=== PATIENT | female | born 1965 | race Caucasian/White ===

== ENCOUNTER 2016-08-07 12:57 | Emergency (ER) | payer OTHER ==
--- NOTE | 2016-08-07 14:07 | DIAGNOSTIC IMAGING REPORT ---
PROCEDURE: XR CHEST 2 VIEW INDICATION: COPD TECHNIQUE: PA and lateral views. COMPARISON: None. FINDINGS: Lungs are clear. Heart and mediastinum are normal. Thorax is normal. IMPRESSION: 1. Negative chest.
--- NOTE | 2016-08-07 15:00 | ED CLINICAL REPORT ---
Clinical Report - Physicians/Mid Levels [facility] [address] [place] [address] 08/07/2016 13:00 Patient: NELL GARCIA Time Seen: 1320; initial patient contact. Arrived- By private vehicle. Historian- patient. HISTORY OF PRESENT ILLNESS Chief Complaint: WHEEZING and hx COPD. This started yesterday and is still present and worsening. It was abrupt in onset and has been constant but is not gone now. The dyspnea is described as severe. She has had dyspnea at rest. The patient has had a cough. (wheezing). See nurses notes for current asthma threapy. Asthma triggers: (unknown). Similar symptoms previously: Several times. Recent medical care: Not recently seen/assessed. REVIEW OF SYSTEMS No fever, chills, palpitations, nausea or skin rash. No vomiting. All systems otherwise negative, except as recorded above. PAST HISTORY See nurses notes. Medications: Hydrochlorothiazide Oral 25 mg, daily. Methocarbamol Oral 500 mg, 3x a day. Lovastatin Oral 20mg, daily. ASA Oral 81mg , daily. Carbidopa-Levodopa Oral 25/100 mg, , 1.5 pills at night. Laxative Pills Oral. Glipizide Oral 2.5mg, 2x a day. Benadryl Allergy Oral, as needed. Gabapentin Oral 300 mg, 2x a day. Allergies: PCN. SOCIAL HISTORY Smoker- current status unknown. No alcohol use or drug use. No recent travel. Is a local resident. ADDITIONAL NOTES The nursing notes have been reviewed. PHYSICAL EXAM Vital Signs: 08/07/2016 13:21 BP: 171/83. HR: 104. RR: 20. O2 saturation: 92%. Temp: 97.5 F. Oxygen saturation normal. Appearance: Alert. No acute distress. Eyes: Pupils equal, round and reactive to light. Eyes normal inspection. ENT: Ears normal. Nose normal. Pharynx normal. Uvula midline. Neck: Normal inspection. Neck supple. No meningeal signs. CVS: Normal heart rate and rhythm. Heart sounds normal. Pulses normal. Respiratory: Mild respiratory distress with accessory muscle use. Expiratory mild bilateral wheezes present. Mild rhonchi present bilaterally. No stridor or rales. Abdomen: Soft and nontender. No organomegaly. Skin: Skin warm and dry. Normal skin color. No rash. Normal skin turgor. Extremities: Extremities exhibit normal ROM. No lower extremity edema. LABS, X-RAYS, AND EKG EKG: No acute ischemia. Tachycardia (104). Sinus tachycardia. Normal P waves. Normal KYLE. Normal QRS complex. Normal axis. Normal ST and T waves, QT and QTc. The study has been interpreted contemporaneously. The study has been independently viewed by me. The EKG appears to be a good tracing. Chest X-ray: (PROCEDURE: XR CHEST 2 VIEW INDICATION: COPD TECHNIQUE: PA and lateral views. COMPARISON: None. FINDINGS: Lungs are clear. Heart and mediastinum are normal. Thorax is normal. IMPRESSION: 1. Negative chest.). The X-rays were independently viewed by me and interpreted by the radiologist. The X-rays were discussed with the radiologist (via pacs). Laboratory Tests: CBC w Diff: (ALVAREZ: 08/07/2016 14:06) ( MsgRcvd 08/07/2016 14:25) Final results Test Result Flag Units (Reference) WHITE BLOOD COUNT 11.3 K/uL (4.5-11.5) RED BLOOD COUNT 4.31 M/uL (4.00-5.20) HEMOGLOBIN 14.8 gm/dL (12.0-16.0) HEMATOCRIT 44.5 % (36.0-46.0) MEAN CELL VOLUME 103 H fL (80-100) MEAN CORPUSCULAR HGB 34 pg (26-34) MEAN CORPUSCULAR HGB CONC 33 g/dL (31-37) RED CELL DISTRIBUTION WIDTH 13.2 % (11.6-14.8) PLATELET COUNT 429 H K/uL (150-400) NEUTROPHIL % 64.2 % (50-75) LYMPH % 25.2 % (25-40) MONO % 6.7 % (3-14) EOSINOPHIL % 3.6 % (0-4) BASOPHIL % 0.3 % (0-2) . PROGRESS AND PROCEDURES Course of Care: patient with history of smoking and COPD presenting for evaluation of exacerbation. Patient appears nontoxic. Breathing treatment has been ordered. Patient does not improved as would be expected from a COPD exacerbation, will consider other causes for her shortness of breath. Chest x-ray has been ordered for potential pneumonia. Patient is agreeable to the treatment plan. The patient's workup was unremarkable for the findings above. No acute abnormalities noted. EKG was ordered per triage protocol. No acute findings noted there. Patient was significantly improved symptoms while here in the emergency department. Had a discussion with the patient in regards to her workup in the emergency department including diagnosis, home care, follow-up, and return precautions. All questions have been answered. The patient expressed understanding of these instructions and was agreeable to them. Smoking cessation discussed. CLINICAL IMPRESSION 08/07/2016 14:11 HR: 100. RR: 22. O2 saturation: 91%. 08/07/2016 13:21 BP: 171/83. HR: 104. RR: 20. O2 saturation: 92%. Temp: 97.5 F. Oxygen saturation: borderline. Acute exacerbation of COPD (acute). INSTRUCTIONS Warnings: GENERAL WARNINGS: Return or contact your physician immediately if your condition worsens or changes unexpectedly, if not improving as expected, or if other problems arise. Specifically return if pain, vomiting, bleeding, breathing difficulty or fever. Your Current Medications: CONTINUE TAKING THE FOLLOWING MEDICATIONS: ASA Oral : 81mg daily. Benadryl Allergy Oral : prn. Carbidopa-Levodopa Oral : 25/100 mg, 1.5 pills at night. Gabapentin Oral : 300 mg 2x a day. Glipizide Oral : 2.5mg 2x a day. Hydrochlorothiazide Oral : 25 mg daily. Laxative Pills Oral. Lovastatin Oral : 20mg daily. Methocarbamol Oral : 500 mg 3x a day. Prescription Medications: Albuterol HFA oral inhaler: inhale 1-2 puffs every 4 hours as needed for wheezing, difficulty breathing or shortness of breath. Dispense one (1) unit. No refill. Albuterol 0.083% Inhalation Solution: inhale 1 unit dose (3 mL) via nebulizer every 4 hours as needed for wheezing, difficulty breathing or shortness of breath. Dispense fifty (50) units. No refills. Prednisone. No refills. (60 mg PO once a day for 5 days. Disp suff quant.) Zithromax Z-Alec: Take according to package instructions. No refills. Substitution is permissible. nebulizer machine. for use with nebulizer solution. disp 1 machine. no refills. Follow-up: Return to the emergency department as needed. Follow up with your doctor in three days. Reason for referral: recheck today's concerns. Summary of care provided to patient via paper. Screening today revealed the patient's blood pressure to be in the normal range. The patient should follow up with a primary care provider for blood pressure management. Understanding of the discharge instructions verbalized by patient and family. (Electronically signed by Richie Rasheed Dr. 08/10/2016 5:45)
--- NOTE | 2016-08-07 15:00 | ED ORDER SUMMARY ---
..... Patient: NELL GARCIA OrderSheet [facility] VisitID: [id number] [place] [address] 50y, F Registration Date/Time: 08/07/2016 ORDER SHEET Weight: 77.1 kg (stated) Allergies: PCN GENERAL ORDERS: Analytical Chemist (Continuous) (13:20 08/07/2016 JBoardley R.N. per protocol) (13:21 JBoardley R.N.) Pulse oximeter (13:20 08/07/2016 JBoardley R.N. per protocol) (13:21 JBoardley R.N.) EKG - ER Stat (13:20 08/07/2016 JBoardley R.N. per protocol) (13:21 JBoardley R.N.) Chest 2V Urgent (13:35 08/07/2016 Leo Francisco) (Ack 13:46 LNations ER Tech1) (14:10 JBoardley R.N.) CBC w Diff Urgent (13:36 08/07/2016 Leo Francisco) (Ack 13:46 LNations ER Tech1) (14:10 JBoardley R.N.) BMP Urgent (13:36 08/07/2016 Leo Francisco) (Ack 13:46 LNations ER Tech1) (14:10 JBoardley R.N.) MEDICATION ORDERS: Albuterol Neb w Atrovent 1 unit dose (NOW) (13:29 08/07/2016 JBoardlesharonda R.N. per protocol) (13:35 JBoardley R.N.) DuoNeb Neb Tx 1 unit dose (NOW) (13:36 08/07/2016 Leo Francisco) (Ack 13:44 NANETTEoarguillermina R.N.) (13:52 KEpting) Albuterol Neb Tx 2.5 mg (NOW) (14:19 08/07/2016 Leo Francisco) (14:25 KEpting) Azithromycin PO 500 mg (NOW) (14:57 08/07/2016 Leo Francisco) (Ack 15:00 JBoardley R.N.) (15:03 JBoardley R.N.) IV FLUIDS: Solu-MEDROL IV 125 mg (NOW) (13:36 08/07/2016 Leo Francisco) (Ack 13:44 JBoardley R.N.) (14:11 JBoardley R.N.) IV Saline Lock (13:36 08/07/2016 Leo Francisco) (Ack 13:44 JBoardley R.N.) (14:11 JBoardley R.N.) ORDER SHEET NOTES: [Electronically signed by Nii Rendon R.N. (15:14 08/07/2016)] [Electronically signed by Richie Rasheed Dr. (05:45 08/10/2016)] [Electronically locked/signed by Nii Rendon R.N. (15:14 08/07/2016)]
--- NOTE | 2016-08-07 15:00 | ED NURSING NOTES ---
Clinical Report - Nurses [facility] [address] [place] [address] 08/07/2016 13:00 Patient: NELL GARCIA TRIAGE Triage time 13:16 Aug 07 2016. Acuity: LEVEL 3. Chief Complaint: SHORTNESS OF BREATH. 13:16 08/07/16. 13:16 08/07/16. Alert. --13:22 Nii Rendon R.N. 13:21 08/07/16. BP: 171/83. HR: 104. RR: 20. O2 saturation: 92% on room air. Temp: 97.5 F (oral). --13:22 Nii Rendon R.N. Weight: 77.1 kg stated. Height/Length: 63 inches Per Patient. BMI: 30.1. --13:16 Nii Rendon R.N. Medications Gabapentin Oral 300 mg, 2x a day. --13:24 Nii Rendon R.N. Benadryl Allergy Oral, as needed. --13:24 Nii Rendon R.N. Glipizide Oral 2.5mg, 2x a day. --13:24 Nii Rendon R.N. Laxative Pills Oral. --13:25 Nii Rendon R.N. Carbidopa-Levodopa Oral 25/100 mg, , 1.5 pills at night. --13:25 Nii Rendon R.N. ASA Oral 81mg , daily. --13:26 Nii Rendon R.N. Lovastatin Oral 20mg, daily. --13:26 Nii Rendon R.N. Methocarbamol Oral 500 mg, 3x a day. --13:27 Nii Rendon R.N. Hydrochlorothiazide Oral 25 mg, daily. --13:28 Nii Rendon R.N. Medication/allergy information source: the patient. --13:22 Nii Rendon R.N. Allergies PCN. --13:18 Nii Rendon R.N. History Arrived by private vehicle. [facility] 13:16 08/07/16. This started last night. Treatment DIRECTOR MISSION: None. PAST MEDICAL HX: Immunizations: up-to-date. The patient is post-menopausal. SOCIAL HX: Current every day light tobacco smoker (cigarette)- less than 1/2 a pack per day. No alcohol use or drug use. No infectious disease exposure. ABUSE ASSESSMENT: No report of abuse. FALL RISK ASSESSMENT: Fall risk assessment completed. No fall risk identified. NUTRITIONAL RISK ASSESSMENT: The nutritional risk assessment revealed no deficiencies. FUNCTIONAL ASSESSMENT: Functional assessment: no impairments noted. LEARNING NEEDS ASSESSMENT: The learning needs assessment revealed no barriers. SKIN INTEGRITY ASSESSMENT: Skin integrity risk assessment completed. No skin integrity risk identified. --13:22 Nii Rendon R.N. PROBLEMS: Diabetes Mellitus. Hypertension. COPD - Chronic Obstructive Pulmonary Disease. --13:18 Nii Rendon R.N. Back Pain. Restless Legs Syndrome. --13:29 Nii Rendon R.N. ADDITIONAL SURGERIES: Appendectomy. --13:19 Nii Rendon R.N. Back Surgery. --13:29 Nii Rendon R.N. Assessment 13:08/07/16. --13:22 Nii Rendon R.N. Interventions 13:08/07/16. 13:08/07/16. ID and allergy band on patient. To treatment room. --13:22 Nii Rendon R.N. PHYSICAL ASSESSMENT 13:08/07/16. Ambulatory to room. GENERAL / NEURO / PSYCH: Alert. Oriented X 4. RESPIRATORY: Mild respiratory distress. The patient can speak a few words at a time. Cough productive of sputum. CVS: Capillary refill less than 2 seconds. SKIN: Skin is warm. --13:19 Nii Rendon R.N. NURSING PROGRESS NOTES 13:08/07/16. The plan of care for this patient has been created. Monitoring of patient in place. Patient gowned. Head of bed elevated. Reassurance given. Call light placed in reach. Side rails up x 2. Bed placed in lowest position. Brakes of bed on. Patient ready for evaluation- chart flagged and notification provided. --13:19 Nii Rendon R.N. 13:21 08/07/16. EKG time: (1322 PM). EKG was ordered, performed by a tech and shown to the ED physician. --13:21 Nii Rendon R.N. 13:35 08/07/2016 ALBUTEROL NEB W ATROVENT Neb TX 1 unit dose given. Given by the nurse. Allergies verified and confirmed 5 rights. --13:35 Nii Rendon R.N. 13:52 08/07/2016 Duoneb (Ipratropium-Albuterol) Neb TX 1 unit dose given. --13:52 Heidy Richardson 14:01 08/07/2016 Site #1 started via IV in the right antecubital space with an 20g angiocath, with aseptic technique and good blood return; one attempt. Blood drawn: rainbow set. Labeled in the presence of the patient and sent to the lab. Saline lock flushed with 10 mL saline. --14:11 Nii Rendon R.N. 14:06 08/07/2016 SOLU-MEDROL (MethylPREDNISolone Sodium Succ) IVP 125 mg given over 2 minute(s) via site #1. Allergies verified and confirmed 5 rights. IV patency established. IV site checked: no pain, redness, or swelling. IV flushed thoroughly pre- and post-medication administration. IVP given by RN. --14:11 Nii Rendon R.N. 14:12 08/07/16. Cardiac rhythm: sinus tachycardia. --14:12 Nii Rendon R.N. 14:11 08/07/16. HR: 100. RR: 22. O2 saturation: 91% on room air. --14:12 Nii Rendon R.N. 14:12 08/07/16. Reassessment after medication administered. Overall patient status is improved- she states feels better. --14:12 Nii Rendon R.N. 14:25 08/07/2016 Albuterol Neb TX 1 unit dose given. --14:25 Heidy Richardson 14:47 08/07/16. Reassessment after medication administered. She is calm and resting quietly. Overall patient status is improved- she states feels better. --14:47 Nii Rendon R.N. 15:08/07/2016 Azithromycin PO 500 mg given. Allergies verified and confirmed 5 rights. --15:03 Nii Rendon R.N. 15:08/07/2016 Site #1 removed upon discharge. Catheter intact. --15:05 Nii Rendon R.N. DISPOSITION / DISCHARGE 15:08/07/16. Cardiac rhythm: normal sinus rhythm. Condition at departure: improved. The goals identified in the patient's plan of care were met. No learning barriers present. Discharge instructions provided and reviewed with the patient. Reviewed warnings. Reviewed medication(s). Treatments reviewed. Patient verbalized understanding. Written instructions provided in Swedish. The patient was discharged by the physician. She was discharged home and accompanied by family. She left the Emergency Department ambulatory and via private vehicle. Family member driving. FALL RISK ASSESSMENT: Fall risk assessment completed. No fall risk identified. --15:09 Nii Rendon R.N. 15:08/07/16. BP: 134/72. HR: 88. RR: 20. O2 saturation: 93% on room air. Temp: 98.2 F (oral). Pain level now: 02/14. --15:09 Nii Rendon R.N. 15:08/07/16. Departure time: 15:Aug 07 2016. --15:09 Nii Rendon R.N. Locked/Released at 08/07/2016 15:14 by Nii Rendon R.N.
--- NOTE | 2016-08-07 15:00 | ED ORDER SUMMARY ---
..... Patient: NELL GARCIA OrderSheet [facility] VisitID: [id number] [place] [address] 50y, F Registration Date/Time: 08/07/2016 ORDER SHEET Weight: 77.1 kg (stated) Allergies: PCN GENERAL ORDERS: Perfect Binder Feeder Offbearer (Continuous) (13:20 08/07/2016 JBoardley R.N. per protocol) (13:21 JBoardley R.N.) Pulse oximeter (13:20 08/07/2016 JBoardley R.N. per protocol) (13:21 JBoardley R.N.) EKG - ER Stat (13:20 08/07/2016 JBoardley R.N. per protocol) (13:21 JBoardley R.N.) Chest 2V Urgent (13:35 08/07/2016 Leo Francisco) (Ack 13:46 LNations ER Tech1) (14:10 JBoardley R.N.) CBC w Diff Urgent (13:36 08/07/2016 Leo Francisco) (Ack 13:46 LNations ER Tech1) (14:10 JBoardley R.N.) BMP Urgent (13:36 08/07/2016 Leo Francisco) (Ack 13:46 LNations ER Tech1) (14:10 JBoardley R.N.) MEDICATION ORDERS: Albuterol Neb w Atrovent 1 unit dose (NOW) (13:29 08/07/2016 JBoardlesharonda R.N. per protocol) (13:35 JBoardley R.N.) DuoNeb Neb Tx 1 unit dose (NOW) (13:36 08/07/2016 Leo Francisco) (Ack 13:44 NANETTEoarguillermina R.N.) (13:52 KEpting) Albuterol Neb Tx 2.5 mg (NOW) (14:19 08/07/2016 Leo Francisco) (14:25 KEpting) Azithromycin PO 500 mg (NOW) (14:57 08/07/2016 Leo Francisco) (Ack 15:00 JBoardley R.N.) (15:03 JBoardley R.N.) IV FLUIDS: Solu-MEDROL IV 125 mg (NOW) (13:36 08/07/2016 Leo Francisco) (Ack 13:44 JBoardley R.N.) (14:11 JBoardley R.N.) IV Saline Lock (13:36 08/07/2016 Leo Francisco) (Ack 13:44 JBoardley R.N.) (14:11 JBoardley R.N.) ORDER SHEET NOTES: [Electronically signed by Nii Rendon R.N. (15:14 08/07/2016)] [Electronically signed by Richie Rasheed Dr. (05:45 08/10/2016)] [Electronically locked/signed by Nii Rendon R.N. (15:14 08/07/2016)]
--- NOTE | 2016-08-10 05:45 | ED MAR SUMMARY ---
..... Medication Administration Record [facility] [address] [place] [address] Patient: NELL GARCIA Visit ID: [id number] 50y, F Weight: 77.1 kg Height/Length: 63 in BMI: 30.1 ALLERGIES: PCN Given 13:35 08/07/2016 Nii Rendon R.N. Medication Administered: ALBUTEROL NEB W ATROVENT, Dose: 1 unit dose Neb TX. Medication Ordered: Albuterol Neb w Atrovent 1 unit dose (NOW). Given 13:52 08/07/2016 Heidy Richardson, Medication Administered: DUONEB [NEB TX] (IPRATROPIUM-ALBUTEROL), Dose: 1 unit dose Neb TX. Medication Ordered: DuoNeb Neb Tx 1 unit dose (NOW). Given 14:06 08/07/2016 Nii Rendon R.N. Medication Administered: SOLU-MEDROL [IVP] (METHYLPREDNISOLONE SODIUM SUCC), Dose: 125 mg IVP over 2 minute(s), Site: #1 right AC. Medication Ordered: Solu-MEDROL IV 125 mg (NOW). Given 14:25 08/07/2016 Heidy Richardson, Medication Administered: ALBUTEROL [NEB TX], Dose: 1 unit dose Neb TX. Medication Ordered: Albuterol Neb Tx 2.5 mg (NOW). Given 15:03 08/07/2016 Nii Rendon R.N. Medication Administered: AZITHROMYCIN [PO], Dose: 500 mg PO. Medication Ordered: Azithromycin PO 500 mg (NOW).
--- NOTE | 2016-08-10 05:45 | ED MED RECONCILIATION SUMMARY ---
Patient: NELL GARCIA Medication Reconciliation Report [facility] VisitID: [id number] [address] [place] [address] 50y, F Registration Date/Time: 08/07/2016 Weight: 77.1 kg Height/Length: 63 in. BMI: 30.1 ALLERGIES: PCN The patient's Home Medications are listed below: CONTINUE TAKING THE FOLLOWING MEDICATIONS: ASA Oral 81mg , daily Benadryl Allergy Oral Carbidopa-Levodopa Oral 25/100 mg, 1.5 pills at night Gabapentin Oral 300 mg, 2x a day Glipizide Oral 2.5mg, 2x a day Hydrochlorothiazide Oral 25 mg, daily Laxative Pills Oral Lovastatin Oral 20mg, daily Methocarbamol Oral 500 mg, 3x a day The source(s) of the original Home Medication information: patient The following Medications were given to the patient in the Emergency Department: ALBUTEROL NEB W ATROVENT Neb TX 1 unit dose, administered: 08/07/2016 1:35:00 PM Duoneb [Neb Tx] Neb TX 1 unit dose, administered: 08/07/2016 1:52:00 PM SOLU-MEDROL [IVP] IVP 125 mg, administered: 08/07/2016 2:06:00 PM Albuterol [Neb Tx] Neb TX 1 unit dose, administered: 08/07/2016 2:25:00 PM Azithromycin [PO] PO 500 mg, administered: 08/07/2016 3:03:00 PM The following Medications were prescribed to the patient: Albuterol HFA oral inhaler: inhale 1-2 puffs every 4 hours as needed for wheezing, difficulty breathing or shortness of breath. Dispense one (1) unit. No refill. -- Richie Rasheed Dr. Albuterol 0.083% Inhalation Solution: inhale 1 unit dose (3 mL) via nebulizer every 4 hours as needed for wheezing, difficulty breathing or shortness of breath. Dispense fifty (50) units. No refills. -- Richie Rasheed Dr. Prednisone. No refills.(60 mg PO once a day for 5 days. Disp suff quant.) -- Richie Rasheed Dr. Zithromax Z-Alec: Take according to package instructions. No refills. Substitution is permissible. -- Richie Rasheed Dr. nebulizer machine. for use with nebulizer solution. disp 1 machine. no refills. -- Richie Rasheed Dr.
--- NOTE | 2016-08-10 05:45 | ED MED RECONCILIATION SUMMARY ---
Patient: NELL GARCIA Medication Reconciliation Report [facility] VisitID: [id number] [address] [place] [address] 50y, F Registration Date/Time: 08/07/2016 Weight: 77.1 kg Height/Length: 63 in. BMI: 30.1 ALLERGIES: PCN The patient's Home Medications are listed below: CONTINUE TAKING THE FOLLOWING MEDICATIONS: ASA Oral 81mg , daily Benadryl Allergy Oral Carbidopa-Levodopa Oral 25/100 mg, 1.5 pills at night Gabapentin Oral 300 mg, 2x a day Glipizide Oral 2.5mg, 2x a day Hydrochlorothiazide Oral 25 mg, daily Laxative Pills Oral Lovastatin Oral 20mg, daily Methocarbamol Oral 500 mg, 3x a day The source(s) of the original Home Medication information: patient The following Medications were given to the patient in the Emergency Department: ALBUTEROL NEB W ATROVENT Neb TX 1 unit dose, administered: 08/07/2016 1:35:00 PM Duoneb [Neb Tx] Neb TX 1 unit dose, administered: 08/07/2016 1:52:00 PM SOLU-MEDROL [IVP] IVP 125 mg, administered: 08/07/2016 2:06:00 PM Albuterol [Neb Tx] Neb TX 1 unit dose, administered: 08/07/2016 2:25:00 PM Azithromycin [PO] PO 500 mg, administered: 08/07/2016 3:03:00 PM The following Medications were prescribed to the patient: Albuterol HFA oral inhaler: inhale 1-2 puffs every 4 hours as needed for wheezing, difficulty breathing or shortness of breath. Dispense one (1) unit. No refill. -- Richie Rasheed Dr. Albuterol 0.083% Inhalation Solution: inhale 1 unit dose (3 mL) via nebulizer every 4 hours as needed for wheezing, difficulty breathing or shortness of breath. Dispense fifty (50) units. No refills. -- Richie Rasheed Dr. Prednisone. No refills.(60 mg PO once a day for 5 days. Disp suff quant.) -- Richie Rasheed Dr. Zithromax Z-Alec: Take according to package instructions. No refills. Substitution is permissible. -- Richie Rasheed Dr. nebulizer machine. for use with nebulizer solution. disp 1 machine. no refills. -- Richie Rasheed Dr.
--- NOTE | 2016-08-10 05:45 | ED DISCHARGE INSTRUCTIONS ---
Patient: NELL GARCIA General Instructions [facility] VisitID: [id number] [place] [address] 50y, F Registration Date/Time: 08/07/2016 08/07/2016 14:11 HR: 100. RR: 22. O2 saturation: 91%. 08/07/2016 13:21 BP: 171/83. HR: 104. RR: 20. O2 saturation: 92%. Temp: 97.5 F. Oxygen saturation: borderline. Acute exacerbation of COPD (acute). INSTRUCTIONS Warnings: GENERAL WARNINGS: Return or contact your physician immediately if your condition worsens or changes unexpectedly, if not improving as expected, or if other problems arise. Specifically return if pain, vomiting, bleeding, breathing difficulty or fever. Your Current Medications: CONTINUE TAKING THE FOLLOWING MEDICATIONS: ASA Oral : 81mg daily. Benadryl Allergy Oral : prn. Carbidopa-Levodopa Oral : 25/100 mg, 1.5 pills at night. Gabapentin Oral : 300 mg 2x a day. Glipizide Oral : 2.5mg 2x a day. Hydrochlorothiazide Oral : 25 mg daily. Laxative Pills Oral. Lovastatin Oral : 20mg daily. Methocarbamol Oral : 500 mg 3x a day. Prescription Medications: Albuterol HFA oral inhaler: inhale 1-2 puffs every 4 hours as needed for wheezing, difficulty breathing or shortness of breath. Dispense one (1) unit. No refill. Albuterol 0.083% Inhalation Solution: inhale 1 unit dose (3 mL) via nebulizer every 4 hours as needed for wheezing, difficulty breathing or shortness of breath. Dispense fifty (50) units. No refills. Prednisone. No refills. (60 mg PO once a day for 5 days. Disp suff quant.) Zithromax Z-Alec: Take according to package instructions. No refills. Substitution is permissible. nebulizer machine. for use with nebulizer solution. disp 1 machine. no refills. Follow-up: Return to the emergency department as needed. Follow up with your doctor in three days. Reason for referral: recheck today's concerns. Summary of care provided to patient via paper. Screening today revealed the patient's blood pressure to be in the normal range. The patient should follow up with a primary care provider for blood pressure management. Understanding of the discharge instructions verbalized by patient and family. ADDITIONAL INFORMATION COPD Flare Both emphysema and chronic bronchitis are forms of chronic obstructive pulmonary disease (COPD). It is most often caused by many years of smoking tobacco. Many things can make your lung disease suddenly get worse. These causes include the common cold, pneumonia, acute bronchitis, missing doses of your regular breathing medicines, or being around smoke, dust, or other air pollutants. A COPD flare may last 7 to 14 days. Your doctor may prescribe medicineto relax your airways and prevent wheezing. Your doctor may also prescribe antibiotics if he or she thinks you havea bacterial infection. Prednisone can helpease inflammation in a severe attack. Home care Here are things you can do at home: Drink lots of water or other fluids (at least 10 glasses a day) during an attack. This will loosen lung secretions and make it easier to breathe. If you have heart or kidney disease, check with your doctor before you drink extra amounts of fluids. Take prescribed medicine exactly at the times advised. If you have a hand-held inhaler or aerosol breathing medicine, don't use it more than once every 4 hours, unless your doctor tells you to. If you were givenan antibiotic or prednisone, take all of the medicine even if you are feeling better after a few days. Don't smoke. Avoid being aroundthe smoke of others. If you were given an inhaler, use it exactly as directed. If you need to use it more often than prescribed, your condition may be getting worse. Call your doctor. Follow-up care Follow up with your health care provider.If you are 65 or older or have chronic asthma or COPD, you should get a single dose of the pneumococcal vaccine and aflu shot each year. You may need a second dose of the pneumococcal vaccine if you had the first dose at a younger age. Your health care provider will let you know if you need a second dose. For all other people, the usual dose for the pneumococcal vaccine is 1 or 2 shots. Yourprovider can discuss this with you. When to seek medical care Get prompt medical attention ifany of these occur: Increased wheezing or shortness of breath Need to use your inhalers more often than usual without relief Fever of 100.4F(38C) or higher, or as directed by your health care provider Coughing up lots of dark-colored or bloody sputum (mucus) Chest pain with each breath You do not start to improve within 24 hours Albuterol Sulfate Pressurized inhalation, suspension What is this medicine? ALBUTEROL (al BYOO ter ole) is a bronchodilator. It helps open up the airways in your lungs to make it easier to breathe. This medicine is used to treat and to prevent bronchospasm. How should I use this medicine? This medicine is for inhalation through the mouth. Follow the directions on your prescription label. Take your medicine at regular intervals. Do not use more often than directed. Make sure that you are using your inhaler correctly. Ask you doctor or health care provider if you have any questions. Talk to your senior qc technician regarding the use of this medicine in children. Special care may be needed. What side effects may I notice from receiving this medicine? Side effects that you should report to your doctor or health live in caregiver as soon as possible: allergic reactions like skin rash, itching or hives, swelling of the face, lips, or tongue breathing problems chest pain feeling faint or lightheaded, falls high blood pressure irregular heartbeat fever muscle cramps or weakness pain, tingling, numbness in the hands or feet vomiting Side effects that usually do not require medical attention (report to your doctor or health live in caregiver if they continue or are bothersome): cough difficulty sleeping headache nervousness or trembling stomach upset stuffy or runny nose throat irritation unusual taste What may interact with this medicine? anti-infectives like chloroquine and pentamidine caffeine cisapride diuretics medicines for colds medicines for depression or for emotional or psychotic conditions medicines for weight loss including some herbal products methadone some antibiotics like clarithromycin, erythromycin, levofloxacin, and linezolid some heart medicines steroid hormones like dexamethasone, cortisone, hydrocortisone theophylline thyroid hormones What if I miss a dose? If you miss a dose, use it as soon as you can. If it is almost time for your next dose, use only that dose. Do not use double or extra doses. Where should I keep my medicine? Keep out of the reach of children. Store at room temperature between 15 and 30 degrees C (59 and 86 degrees F). The contents are under pressure and may burst when exposed to heat or flame. Do not freeze. This medicine does not work as well if it is too cold. Throw away any unused medicine after the expiration date. Inhalers need to be thrown away after the labeled number of puffs have been used or by the expiration date; whichever comes first. Ventolin HFA should be thrown away 12 months after removing from foil pouch. Check the instructions that come with your medicine. What should I tell my health care provider before I take this medicine? They need to know if you have any of the following conditions: diabetes heart disease or irregular heartbeat high blood pressure pheochromocytoma seizures thyroid disease an unusual or allergic reaction to albuterol, levalbuterol, sulfites, other medicines, foods, dyes, or preservatives or trying to get breast-feeding What should I watch for while using this medicine? Tell your doctor or health live in caregiver if your symptoms do not improve. Do not use extra albuterol. If your asthma or bronchitis gets worse while you are using this medicine, call your doctor right away. If your mouth gets dry try chewing sugarless gum or sucking hard candy. Drink water as directed. Albuterol Sulfate Nebulizer solution What is this medicine? ALBUTEROL (al BYOO ter ole) is a bronchodilator. It helps to open up the airways in your lungs to make it easier to breathe. This medicine is used to treat and to prevent bronchospasm. How should I use this medicine? This medicine is used in a nebulizer. Nebulizers make a liquid into an aerosol that you breathe in through your mouth or your mouth and nose into your lungs. You will be taught how to use your nebulizer. Follow the directions on your prescription label. Take your medicine at regular intervals. Do not use more often than directed. Talk to your senior qc technician regarding the use of this medicine in children. Special care may be needed. What side effects may I notice from receiving this medicine? Side effects that you should report to your doctor or health live in caregiver as soon as possible: allergic reactions like skin rash, itching or hives, swelling of the face, lips, or tongue breathing problems chest pain feeling faint or lightheaded, falls high blood pressure irregular heartbeat fever muscle cramps or weakness pain, tingling, numbness in the hands or feet vomiting Side effects that usually do not require medical attention (report to your doctor or health live in caregiver if they continue or are bothersome): cough difficulty sleeping headache nervousness, trembling stomach upset stuffy or runny nose throat irritation unusual taste What may interact with this medicine? anti-infectives like chloroquine and pentamidine caffeine cisapride diuretics medicines for colds medicines for depression or emotional or psychotic conditions medicines for weight loss including some herbal products methadone some antibiotics like clarithromycin, erythromycin, levofloxacin, and linezolid some heart medicines steroid hormones like dexamethasone, cortisone, hydrocortisone theophylline thyroid hormones What if I miss a dose? If you miss a dose, use it as soon as you can. If it is almost time for your next dose, use only that dose. Do not use double or extra doses. Where should I keep my medicine? Keep out of the reach of children. Store between 2 and 25 degrees C (36 and 77 degrees F). Do not freeze. Protect from light. Throw away any unused medicine after the expiration date. Most products are kept in the foil package until time of use. Some products can be used up to 1 week after they are removed from the foil pouch. Check the instructions that come with your medicine. What should I tell my health care provider before I take this medicine? They need to know if you have any of the following conditions: diabetes heart disease or irregular heartbeat high blood pressure pheochromocytoma seizures thyroid disease an unusual or allergic reaction to albuterol, levalbuterol, sulfites, other medicines, foods, dyes, or preservatives or trying to get breast-feeding What should I watch for while using this medicine? Tell your doctor or health live in caregiver if your symptoms do not improve. Do not use extra albuterol. Call your doctor right away if your asthma or bronchitis gets worse while you are using this medicine. If your mouth gets dry try chewing sugarless gum or sucking hard candy. Drink water as directed. Prednisone Oral tablet What is this medicine? PREDNISONE (PRED ni sone) is a corticosteroid. It is commonly used to treat inflammation of the skin, joints, lungs, and other organs. Common conditions treated include asthma, allergies, and arthritis. It is also used for other conditions, such as blood disorders and diseases of the adrenal glands. How should I use this medicine? Take this medicine by mouth with a glass of water. Follow the directions on the prescription label. Take this medicine with food. If you are taking this medicine once a day, take it in the morning. Do not take more medicine than you are told to take. Do not suddenly stop taking your medicine because you may develop a severe reaction. Your doctor will tell you how much medicine to take. If your doctor wants you to stop the medicine, the dose may be slowly lowered over time to avoid any side effects. Talk to your senior qc technician regarding the use of this medicine in children. Special care may be needed. What side effects may I notice from receiving this medicine? Side effects that you should report to your doctor or health live in caregiver as soon as possible: allergic reactions like skin rash, itching or hives, swelling of the face, lips, or tongue changes in emotions or moods changes in vision depressed mood eye pain fever or chills, cough, sore throat, pain or difficulty passing urine increased thirst swelling of ankles, feet Side effects that usually do not require medical attention (report to your doctor or health live in caregiver if they continue or are bothersome): confusion, excitement, restlessness headache nausea, vomiting skin problems, acne, thin and shiny skin trouble sleeping weight gain What may interact with this medicine? Do not take this medicine with any of the following medications: metyrapone mifepristone This medicine may also interact with the following medications: aminoglutethimide amphotericin B aspirin and aspirin-like medicines barbiturates certain medicines for diabetes, like glipizide or glyburide cholestyramine cholinesterase inhibitors cyclosporine digoxin diuretics ephedrine female hormones, like estrogens and control pills isoniazid ketoconazole NSAIDS, medicines for pain and inflammation, like ibuprofen or naproxen phenytoin rifampin toxoids vaccines warfarin What if I miss a dose? If you miss a dose, take it as soon as you can. If it is almost time for your next dose, talk to your doctor or health live in caregiver. You may need to miss a dose or take an extra dose. Do not take double or extra doses without advice. Where should I keep my medicine? Keep out of the reach of children. Store at room temperature between 15 and 30 degrees C (59 and 86 degrees F). Protect from light. Keep container tightly closed. Throw away any unused medicine after the expiration date. What should I tell my health care provider before I take this medicine? They need to know if you have any of these conditions: Jazmyne's syndrome diabetes glaucoma heart disease high blood pressure infection (especially a virus infection such as chickenpox, cold sores, or herpes) kidney disease liver disease mental illness myasthenia gravis osteoporosis seizures stomach or intestine problems thyroid disease an unusual or allergic reaction to lactose, prednisone, other medicines, foods, dyes, or preservatives or trying to get breast-feeding What should I watch for while using this medicine? Visit your doctor or health live in caregiver for regular checks on your progress. If you are taking this medicine over a prolonged period, carry an identification card with your name and address, the type and dose of your medicine, and your doctor's name and address. This medicine may increase your risk of getting an infection. Tell your doctor or health live in caregiver if you are around anyone with measles or chickenpox, or if you develop sores or blisters that do not heal properly. If you are going to have surgery, tell your doctor or health live in caregiver that you have taken this medicine within the last twelve months. Ask your doctor or health live in caregiver about your diet. You may need to lower the amount of salt you eat. This medicine may affect blood sugar levels. If you have diabetes, check with your doctor or health live in caregiver before you change your diet or the dose of your diabetic medicine. Azithromycin Oral tablet What is this medicine? AZITHROMYCIN (az ith mariannevangelist ROSEN sin) is a macrolide antibiotic. It is used to treat or prevent certain kinds of bacterial infections. It will not work for colds, flu, or other viral infections. How should I use this medicine? Take this medicine by mouth with a full glass of water. Follow the directions on the prescription label. The tablets can be taken with food or on an empty stomach. If the medicine upsets your stomach, take it with food. Take your medicine at regular intervals. Do not take your medicine more often than directed. Take all of your medicine as directed even if you think your are better. Do not skip doses or stop your medicine early. Talk to your senior qc technician regarding the use of this medicine in children. Special care may be needed. What side effects may I notice from receiving this medicine? Side effects that you should report to your doctor or health live in caregiver as soon as possible: allergic reactions like skin rash, itching or hives, swelling of the face, lips, or tongue confusion, nightmares or hallucinations dark urine difficulty breathing hearing loss irregular heartbeat or chest pain pain or difficulty passing urine redness, blistering, peeling or loosening of the skin, including inside the mouth white patches or sores in the mouth yellowing of the eyes or skin Side effects that usually do not require medical attention (report to your doctor or health live in caregiver if they continue or are bothersome): diarrhea dizziness, drowsiness headache stomach upset or vomiting tooth discoloration vaginal irritation What may interact with this medicine? Do not take this medicine with any of the following medications: lincomycin This medicine may also interact with the following medications: amiodarone antacids cyclosporine digoxin magnesium nelfinavir phenytoin warfarin What if I miss a dose? If you miss a dose, take it as soon as you can. If it is almost time for your next dose, take only that dose. Do not take double or extra doses. Where should I keep my medicine? Keep out of the reach of children. Store at room temperature between 15 and 30 degrees C (59 and 86 degrees F). Throw away any unused medicine after the expiration date. What should I tell my health care provider before I take this medicine? They need to know if you have any of these conditions: kidney disease liver disease irregular heartbeat or heart disease an unusual or allergic reaction to azithromycin, erythromycin, other macrolide antibiotics, foods, dyes, or preservatives or trying to get breast-feeding What should I watch for while using this medicine? Tell your doctor or health live in caregiver if your symptoms do not improve. Do not treat diarrhea with over the counter products. Contact your doctor if you have diarrhea that lasts more than 2 days or if it is severe and watery. This medicine can make you more sensitive to the sun. Keep out of the sun. If you cannot avoid being in the sun, wear protective clothing and use sunscreen. Do not use sun lamps or tanning beds/booths. You have been given the following additional information: COPD Flare Albuterol Sulfate Pressurized inhalation, suspension Albuterol Sulfate Nebulizer solution Prednisone Oral tablet Azithromycin Oral tablet (Electronically signed by Richie Rasheed Dr. 08/10/2016 5:45)
--- NOTE | 2016-08-10 05:45 | ED MAR SUMMARY ---
..... Medication Administration Record [facility] [address] [place] [address] Patient: NELL GARCIA Visit ID: [id number] 50y, F Weight: 77.1 kg Height/Length: 63 in BMI: 30.1 ALLERGIES: PCN Given 13:35 08/07/2016 Nii Rendon R.N. Medication Administered: ALBUTEROL NEB W ATROVENT, Dose: 1 unit dose Neb TX. Medication Ordered: Albuterol Neb w Atrovent 1 unit dose (NOW). Given 13:52 08/07/2016 Heidy Richardson, Medication Administered: DUONEB [NEB TX] (IPRATROPIUM-ALBUTEROL), Dose: 1 unit dose Neb TX. Medication Ordered: DuoNeb Neb Tx 1 unit dose (NOW). Given 14:06 08/07/2016 Nii Rendon R.N. Medication Administered: SOLU-MEDROL [IVP] (METHYLPREDNISOLONE SODIUM SUCC), Dose: 125 mg IVP over 2 minute(s), Site: #1 right AC. Medication Ordered: Solu-MEDROL IV 125 mg (NOW). Given 14:25 08/07/2016 Heidy Richardson, Medication Administered: ALBUTEROL [NEB TX], Dose: 1 unit dose Neb TX. Medication Ordered: Albuterol Neb Tx 2.5 mg (NOW). Given 15:03 08/07/2016 Nii Rendon R.N. Medication Administered: AZITHROMYCIN [PO], Dose: 500 mg PO. Medication Ordered: Azithromycin PO 500 mg (NOW).
--- NOTE | 2016-08-10 05:45 | ED DISCHARGE INSTRUCTIONS ---
Patient: NELL GARCIA General Instructions [facility] VisitID: [id number] [place] [address] 50y, F Registration Date/Time: 08/07/2016 08/07/2016 14:11 HR: 100. RR: 22. O2 saturation: 91%. 08/07/2016 13:21 BP: 171/83. HR: 104. RR: 20. O2 saturation: 92%. Temp: 97.5 F. Oxygen saturation: borderline. Acute exacerbation of COPD (acute). INSTRUCTIONS Warnings: GENERAL WARNINGS: Return or contact your physician immediately if your condition worsens or changes unexpectedly, if not improving as expected, or if other problems arise. Specifically return if pain, vomiting, bleeding, breathing difficulty or fever. Your Current Medications: CONTINUE TAKING THE FOLLOWING MEDICATIONS: ASA Oral : 81mg daily. Benadryl Allergy Oral : prn. Carbidopa-Levodopa Oral : 25/100 mg, 1.5 pills at night. Gabapentin Oral : 300 mg 2x a day. Glipizide Oral : 2.5mg 2x a day. Hydrochlorothiazide Oral : 25 mg daily. Laxative Pills Oral. Lovastatin Oral : 20mg daily. Methocarbamol Oral : 500 mg 3x a day. Prescription Medications: Albuterol HFA oral inhaler: inhale 1-2 puffs every 4 hours as needed for wheezing, difficulty breathing or shortness of breath. Dispense one (1) unit. No refill. Albuterol 0.083% Inhalation Solution: inhale 1 unit dose (3 mL) via nebulizer every 4 hours as needed for wheezing, difficulty breathing or shortness of breath. Dispense fifty (50) units. No refills. Prednisone. No refills. (60 mg PO once a day for 5 days. Disp suff quant.) Zithromax Z-Alec: Take according to package instructions. No refills. Substitution is permissible. nebulizer machine. for use with nebulizer solution. disp 1 machine. no refills. Follow-up: Return to the emergency department as needed. Follow up with your doctor in three days. Reason for referral: recheck today's concerns. Summary of care provided to patient via paper. Screening today revealed the patient's blood pressure to be in the normal range. The patient should follow up with a primary care provider for blood pressure management. Understanding of the discharge instructions verbalized by patient and family. ADDITIONAL INFORMATION COPD Flare Both emphysema and chronic bronchitis are forms of chronic obstructive pulmonary disease (COPD). It is most often caused by many years of smoking tobacco. Many things can make your lung disease suddenly get worse. These causes include the common cold, pneumonia, acute bronchitis, missing doses of your regular breathing medicines, or being around smoke, dust, or other air pollutants. A COPD flare may last 7 to 14 days. Your doctor may prescribe medicineto relax your airways and prevent wheezing. Your doctor may also prescribe antibiotics if he or she thinks you havea bacterial infection. Prednisone can helpease inflammation in a severe attack. Home care Here are things you can do at home: Drink lots of water or other fluids (at least 10 glasses a day) during an attack. This will loosen lung secretions and make it easier to breathe. If you have heart or kidney disease, check with your doctor before you drink extra amounts of fluids. Take prescribed medicine exactly at the times advised. If you have a hand-held inhaler or aerosol breathing medicine, don't use it more than once every 4 hours, unless your doctor tells you to. If you were givenan antibiotic or prednisone, take all of the medicine even if you are feeling better after a few days. Don't smoke. Avoid being aroundthe smoke of others. If you were given an inhaler, use it exactly as directed. If you need to use it more often than prescribed, your condition may be getting worse. Call your doctor. Follow-up care Follow up with your health care provider.If you are 65 or older or have chronic asthma or COPD, you should get a single dose of the pneumococcal vaccine and aflu shot each year. You may need a second dose of the pneumococcal vaccine if you had the first dose at a younger age. Your health care provider will let you know if you need a second dose. For all other people, the usual dose for the pneumococcal vaccine is 1 or 2 shots. Yourprovider can discuss this with you. When to seek medical care Get prompt medical attention ifany of these occur: Increased wheezing or shortness of breath Need to use your inhalers more often than usual without relief Fever of 100.4F(38C) or higher, or as directed by your health care provider Coughing up lots of dark-colored or bloody sputum (mucus) Chest pain with each breath You do not start to improve within 24 hours Albuterol Sulfate Pressurized inhalation, suspension What is this medicine? ALBUTEROL (al BYOO ter ole) is a bronchodilator. It helps open up the airways in your lungs to make it easier to breathe. This medicine is used to treat and to prevent bronchospasm. How should I use this medicine? This medicine is for inhalation through the mouth. Follow the directions on your prescription label. Take your medicine at regular intervals. Do not use more often than directed. Make sure that you are using your inhaler correctly. Ask you doctor or health care provider if you have any questions. Talk to your master data analyst regarding the use of this medicine in children. Special care may be needed. What side effects may I notice from receiving this medicine? Side effects that you should report to your doctor or health critical care cns as soon as possible: allergic reactions like skin rash, itching or hives, swelling of the face, lips, or tongue breathing problems chest pain feeling faint or lightheaded, falls high blood pressure irregular heartbeat fever muscle cramps or weakness pain, tingling, numbness in the hands or feet vomiting Side effects that usually do not require medical attention (report to your doctor or health critical care cns if they continue or are bothersome): cough difficulty sleeping headache nervousness or trembling stomach upset stuffy or runny nose throat irritation unusual taste What may interact with this medicine? anti-infectives like chloroquine and pentamidine caffeine cisapride diuretics medicines for colds medicines for depression or for emotional or psychotic conditions medicines for weight loss including some herbal products methadone some antibiotics like clarithromycin, erythromycin, levofloxacin, and linezolid some heart medicines steroid hormones like dexamethasone, cortisone, hydrocortisone theophylline thyroid hormones What if I miss a dose? If you miss a dose, use it as soon as you can. If it is almost time for your next dose, use only that dose. Do not use double or extra doses. Where should I keep my medicine? Keep out of the reach of children. Store at room temperature between 15 and 30 degrees C (59 and 86 degrees F). The contents are under pressure and may burst when exposed to heat or flame. Do not freeze. This medicine does not work as well if it is too cold. Throw away any unused medicine after the expiration date. Inhalers need to be thrown away after the labeled number of puffs have been used or by the expiration date; whichever comes first. Ventolin HFA should be thrown away 12 months after removing from foil pouch. Check the instructions that come with your medicine. What should I tell my health care provider before I take this medicine? They need to know if you have any of the following conditions: diabetes heart disease or irregular heartbeat high blood pressure pheochromocytoma seizures thyroid disease an unusual or allergic reaction to albuterol, levalbuterol, sulfites, other medicines, foods, dyes, or preservatives or trying to get breast-feeding What should I watch for while using this medicine? Tell your doctor or health critical care cns if your symptoms do not improve. Do not use extra albuterol. If your asthma or bronchitis gets worse while you are using this medicine, call your doctor right away. If your mouth gets dry try chewing sugarless gum or sucking hard candy. Drink water as directed. Albuterol Sulfate Nebulizer solution What is this medicine? ALBUTEROL (al BYOO ter ole) is a bronchodilator. It helps to open up the airways in your lungs to make it easier to breathe. This medicine is used to treat and to prevent bronchospasm. How should I use this medicine? This medicine is used in a nebulizer. Nebulizers make a liquid into an aerosol that you breathe in through your mouth or your mouth and nose into your lungs. You will be taught how to use your nebulizer. Follow the directions on your prescription label. Take your medicine at regular intervals. Do not use more often than directed. Talk to your master data analyst regarding the use of this medicine in children. Special care may be needed. What side effects may I notice from receiving this medicine? Side effects that you should report to your doctor or health critical care cns as soon as possible: allergic reactions like skin rash, itching or hives, swelling of the face, lips, or tongue breathing problems chest pain feeling faint or lightheaded, falls high blood pressure irregular heartbeat fever muscle cramps or weakness pain, tingling, numbness in the hands or feet vomiting Side effects that usually do not require medical attention (report to your doctor or health critical care cns if they continue or are bothersome): cough difficulty sleeping headache nervousness, trembling stomach upset stuffy or runny nose throat irritation unusual taste What may interact with this medicine? anti-infectives like chloroquine and pentamidine caffeine cisapride diuretics medicines for colds medicines for depression or emotional or psychotic conditions medicines for weight loss including some herbal products methadone some antibiotics like clarithromycin, erythromycin, levofloxacin, and linezolid some heart medicines steroid hormones like dexamethasone, cortisone, hydrocortisone theophylline thyroid hormones What if I miss a dose? If you miss a dose, use it as soon as you can. If it is almost time for your next dose, use only that dose. Do not use double or extra doses. Where should I keep my medicine? Keep out of the reach of children. Store between 2 and 25 degrees C (36 and 77 degrees F). Do not freeze. Protect from light. Throw away any unused medicine after the expiration date. Most products are kept in the foil package until time of use. Some products can be used up to 1 week after they are removed from the foil pouch. Check the instructions that come with your medicine. What should I tell my health care provider before I take this medicine? They need to know if you have any of the following conditions: diabetes heart disease or irregular heartbeat high blood pressure pheochromocytoma seizures thyroid disease an unusual or allergic reaction to albuterol, levalbuterol, sulfites, other medicines, foods, dyes, or preservatives or trying to get breast-feeding What should I watch for while using this medicine? Tell your doctor or health critical care cns if your symptoms do not improve. Do not use extra albuterol. Call your doctor right away if your asthma or bronchitis gets worse while you are using this medicine. If your mouth gets dry try chewing sugarless gum or sucking hard candy. Drink water as directed. Prednisone Oral tablet What is this medicine? PREDNISONE (PRED ni sone) is a corticosteroid. It is commonly used to treat inflammation of the skin, joints, lungs, and other organs. Common conditions treated include asthma, allergies, and arthritis. It is also used for other conditions, such as blood disorders and diseases of the adrenal glands. How should I use this medicine? Take this medicine by mouth with a glass of water. Follow the directions on the prescription label. Take this medicine with food. If you are taking this medicine once a day, take it in the morning. Do not take more medicine than you are told to take. Do not suddenly stop taking your medicine because you may develop a severe reaction. Your doctor will tell you how much medicine to take. If your doctor wants you to stop the medicine, the dose may be slowly lowered over time to avoid any side effects. Talk to your master data analyst regarding the use of this medicine in children. Special care may be needed. What side effects may I notice from receiving this medicine? Side effects that you should report to your doctor or health critical care cns as soon as possible: allergic reactions like skin rash, itching or hives, swelling of the face, lips, or tongue changes in emotions or moods changes in vision depressed mood eye pain fever or chills, cough, sore throat, pain or difficulty passing urine increased thirst swelling of ankles, feet Side effects that usually do not require medical attention (report to your doctor or health critical care cns if they continue or are bothersome): confusion, excitement, restlessness headache nausea, vomiting skin problems, acne, thin and shiny skin trouble sleeping weight gain What may interact with this medicine? Do not take this medicine with any of the following medications: metyrapone mifepristone This medicine may also interact with the following medications: aminoglutethimide amphotericin B aspirin and aspirin-like medicines barbiturates certain medicines for diabetes, like glipizide or glyburide cholestyramine cholinesterase inhibitors cyclosporine digoxin diuretics ephedrine female hormones, like estrogens and control pills isoniazid ketoconazole NSAIDS, medicines for pain and inflammation, like ibuprofen or naproxen phenytoin rifampin toxoids vaccines warfarin What if I miss a dose? If you miss a dose, take it as soon as you can. If it is almost time for your next dose, talk to your doctor or health critical care cns. You may need to miss a dose or take an extra dose. Do not take double or extra doses without advice. Where should I keep my medicine? Keep out of the reach of children. Store at room temperature between 15 and 30 degrees C (59 and 86 degrees F). Protect from light. Keep container tightly closed. Throw away any unused medicine after the expiration date. What should I tell my health care provider before I take this medicine? They need to know if you have any of these conditions: Jazmyne's syndrome diabetes glaucoma heart disease high blood pressure infection (especially a virus infection such as chickenpox, cold sores, or herpes) kidney disease liver disease mental illness myasthenia gravis osteoporosis seizures stomach or intestine problems thyroid disease an unusual or allergic reaction to lactose, prednisone, other medicines, foods, dyes, or preservatives or trying to get breast-feeding What should I watch for while using this medicine? Visit your doctor or health critical care cns for regular checks on your progress. If you are taking this medicine over a prolonged period, carry an identification card with your name and address, the type and dose of your medicine, and your doctor's name and address. This medicine may increase your risk of getting an infection. Tell your doctor or health critical care cns if you are around anyone with measles or chickenpox, or if you develop sores or blisters that do not heal properly. If you are going to have surgery, tell your doctor or health critical care cns that you have taken this medicine within the last twelve months. Ask your doctor or health critical care cns about your diet. You may need to lower the amount of salt you eat. This medicine may affect blood sugar levels. If you have diabetes, check with your doctor or health critical care cns before you change your diet or the dose of your diabetic medicine. Azithromycin Oral tablet What is this medicine? AZITHROMYCIN (az ith mariannevangelist ROSEN sin) is a macrolide antibiotic. It is used to treat or prevent certain kinds of bacterial infections. It will not work for colds, flu, or other viral infections. How should I use this medicine? Take this medicine by mouth with a full glass of water. Follow the directions on the prescription label. The tablets can be taken with food or on an empty stomach. If the medicine upsets your stomach, take it with food. Take your medicine at regular intervals. Do not take your medicine more often than directed. Take all of your medicine as directed even if you think your are better. Do not skip doses or stop your medicine early. Talk to your master data analyst regarding the use of this medicine in children. Special care may be needed. What side effects may I notice from receiving this medicine? Side effects that you should report to your doctor or health critical care cns as soon as possible: allergic reactions like skin rash, itching or hives, swelling of the face, lips, or tongue confusion, nightmares or hallucinations dark urine difficulty breathing hearing loss irregular heartbeat or chest pain pain or difficulty passing urine redness, blistering, peeling or loosening of the skin, including inside the mouth white patches or sores in the mouth yellowing of the eyes or skin Side effects that usually do not require medical attention (report to your doctor or health critical care cns if they continue or are bothersome): diarrhea dizziness, drowsiness headache stomach upset or vomiting tooth discoloration vaginal irritation What may interact with this medicine? Do not take this medicine with any of the following medications: lincomycin This medicine may also interact with the following medications: amiodarone antacids cyclosporine digoxin magnesium nelfinavir phenytoin warfarin What if I miss a dose? If you miss a dose, take it as soon as you can. If it is almost time for your next dose, take only that dose. Do not take double or extra doses. Where should I keep my medicine? Keep out of the reach of children. Store at room temperature between 15 and 30 degrees C (59 and 86 degrees F). Throw away any unused medicine after the expiration date. What should I tell my health care provider before I take this medicine? They need to know if you have any of these conditions: kidney disease liver disease irregular heartbeat or heart disease an unusual or allergic reaction to azithromycin, erythromycin, other macrolide antibiotics, foods, dyes, or preservatives or trying to get breast-feeding What should I watch for while using this medicine? Tell your doctor or health critical care cns if your symptoms do not improve. Do not treat diarrhea with over the counter products. Contact your doctor if you have diarrhea that lasts more than 2 days or if it is severe and watery. This medicine can make you more sensitive to the sun. Keep out of the sun. If you cannot avoid being in the sun, wear protective clothing and use sunscreen. Do not use sun lamps or tanning beds/booths. You have been given the following additional information: COPD Flare Albuterol Sulfate Pressurized inhalation, suspension Albuterol Sulfate Nebulizer solution Prednisone Oral tablet Azithromycin Oral tablet (Electronically signed by Richie Rasheed Dr. 08/10/2016 5:45)
== END 2016-08-07 15:09 | disposition home or self-care (01) ==
LOC: ED SRH 12:57
DX: J44.1 Chronic obstructive pulmonary disease with (acute) exacerbation (principal); I10 Essential (primary) hypertension; E11.9 Type 2 diabetes mellitus without complications; Z79.82 Long term (current) use of aspirin; Z79.899 Other long term (current) drug therapy
CPT/HCPCS: 90047; 95059